=== PATIENT | female | born 1975 | race African-American/Black ===

== ENCOUNTER 2021-06-11 10:04 | Emergency (ER) | payer OTHER, MEDICAID ==
[2021-06-11 11:28] LABS: #Eosinphils 0.1 thou/uL (0.0-0.7); #Lymphocytes 2.5 thou/uL (1.20-3.40); #Monocytes 0.6 thou/uL (0.11-0.59); #Neutrophils 5.8 thou/uL (1.40-6.50); %Basophils 0.4 % (0.0-1.0); %Eosinophils 1.2 % (0.0-10.0); %Lymphocytes 27.5 % (21.0-51.0); %Monocytes 7.1 % (0.0-10.0); %Neutrophils 63.8 % (42.0-75.0); Hemoglobin 12.2 g/dL (12.0-16.0); Mean Corpuscular HGB CONC 33.4 g/dL (32.0-36.0); Mean Corpuscular Hemoglobin 29.1 pg (27.0-31.0); Mean Corpuscular Volume 87.3 fL (78.0-98.0); Mean Platelet Volume 9.4 fL (7.4-10.4); Platelet Count 279 thou/uL (130-400); RBC Distribution Width 13.9 % (11.5-14.5); Red Blood Cell (RBC) Count 4.17 mill/uL (4.20-5.40); White Blood Cell (WBC) Count 9.1 thou/uL (4.8-10.8)
[2021-06-11] MEDS ORDERED: Acetaminophen 500 MG TAB ONE (11:31)
[2021-06-11 11:49] LABS: Digoxin Less than 0.15 ng/mL (0.8-2.0)
[2021-06-11 11:50] LABS: ALT (SGPT) 17 U/L (8-55); AST (SGOT) 16 U/L (5-34); Alkaline Phosphatase 61 U/L (40-110); Anion Gap 12 mmol/L (10-20); BUN (Urea Nitrogen) 12 mg/dL (7.0-18.7); Bilirubin, Total 0.3 mg/dL (0.2-1.2); Calc. Creatinine Clearance 0 mL/min (70-130); Calcium 8.3 mg/dL (7.8-10.44); Carbon Dioxide 24 mmol/L (22-29); Chloride 106 mmol/L (98-107); Globulin 3.4 g/dL (2.4-3.5); Glucose 95 mg/dL (70-105); Lipase 62 U/L (8-78); Potassium 3.8 mmol/L (3.5-5.1); Protein, Total 7.4 g/dL (6.0-8.3); Sodium 138 mmol/L (136-145)
== END 2021-06-11 12:26 | disposition home or self-care (01) ==
LOC: ERS 10:04
DX: R07.2 Precordial pain (principal)
CPT/HCPCS: 36415; 71045; 80053; 80162; 83690; 84484; 85025; 93005

== ENCOUNTER 2021-08-17 22:30 | Emergency (ER) | payer OTHER, MEDICAID ==
[2021-08-18 02:20] LABS: #Basophils 0.1 thou/uL (0.0-0.2); #Eosinphils 0.1 thou/uL (0.0-0.7); #Lymphocytes 3.8 thou/uL (1.20-3.40); #Monocytes 0.9 thou/uL (0.11-0.59); #Neutrophils 7.3 thou/uL (1.40-6.50); %Basophils 1.2 % (0.0-1.0); %Lymphocytes 31.3 % (21.0-51.0); %Neutrophils 59.6 % (42.0-75.0); Hemoglobin 12.5 g/dL (12.0-16.0); Mean Corpuscular Hemoglobin 29.8 pg (27.0-31.0); Mean Corpuscular Volume 87.5 fL (78.0-98.0); Mean Platelet Volume 9.3 fL (7.4-10.4); Platelet Count 263 thou/uL (130-400); RBC Distribution Width 13.9 % (11.5-14.5); Red Blood Cell (RBC) Count 4.21 mill/uL (4.20-5.40); White Blood Cell (WBC) Count 12.2 thou/uL (4.8-10.8)
[2021-08-18 02:40] LABS: ALT (SGPT) 22 U/L (8-55); AST (SGOT) 17 U/L (5-34); Albumin 4.1 g/dL (3.5-5.0); Alkaline Phosphatase 57 U/L (40-110); Anion Gap 13 mmol/L (10-20); BUN (Urea Nitrogen) 16 mg/dL (7.0-18.7); Bilirubin, Total 0.2 mg/dL (0.2-1.2); Calc. Creatinine Clearance 0 mL/min (70-130); Calcium 8.5 mg/dL (7.8-10.44); Carbon Dioxide 23 mmol/L (22-29); Chloride 107 mmol/L (98-107); Globulin 3.1 g/dL (2.4-3.5); Glucose 105 mg/dL (70-105); Lipase 68 U/L (8-78); Potassium 3.9 mmol/L (3.5-5.1); Protein, Total 7.2 g/dL (6.0-8.3); Sodium 139 mmol/L (136-145)
[2021-08-18] MEDS ORDERED: Ketorolac Tromethamine 30 MG/ML VIAL ONE (03:14)
== END 2021-08-18 03:24 | disposition home or self-care (01) ==
LOC: ERS 22:30
DX: G43.909 Migraine, unspecified, not intractable, without status migrainosus (principal); M25.812 Other specified joint disorders, left shoulder
CPT/HCPCS: 36415; 71045; 80053; 83690; 84484; 85025; 93005; J1885

== ENCOUNTER 2022-02-23 22:24 | Emergency (ER) | payer OTHER ==
[2022-02-23] MEDS ORDERED: diphenhydrAMINE 50 MG/ML VIAL ONE (23:38)
[2022-02-23] MEDS ORDERED: Metoclopramide HCl 10 MG/2 ML VIAL ONE (23:38)
[2022-02-24] MEDS ORDERED: Ketorolac Tromethamine 30 MG/ML VIAL ONE (00:47)
== END 2022-02-24 00:54 | disposition home or self-care (01) ==
LOC: ERS 22:24
DX: R51.9 Headache, unspecified (principal); E03.9 Hypothyroidism, unspecified
CPT/HCPCS: 96374; 96375; J1200; J1885; J2765

== ENCOUNTER 2022-03-22 22:53 | Emergency (ER) | payer OTHER ==
[2022-03-22] MEDS ORDERED: Lidocaine 2% Viscous Solution 10 ML, Aluminum & Magnesium Hydroxide 30 ML SSW SCH (23:45)
[2022-03-22] MEDS ORDERED: Ondansetron ODT 4 MG TAB ONE (23:46)
[2022-03-22 23:57] LABS: #Basophils 0.1 thou/uL (0.0-0.2); #Eosinphils 0.1 thou/uL (0.0-0.7); #Lymphocytes 3.5 thou/uL (1.20-3.40); #Monocytes 0.8 thou/uL (0.11-0.59); #Neutrophils 7.7 thou/uL (1.40-6.50); %Eosinophils 0.6 % (0.0-10.0); %Lymphocytes 28.9 % (21.0-51.0); %Monocytes 6.5 % (0.0-10.0); %Neutrophils 62.9 % (42.0-75.0); Hemoglobin 13.1 g/dL (12.0-16.0); Mean Corpuscular HGB CONC 33.8 g/dL (32.0-36.0); Mean Corpuscular Hemoglobin 29.4 pg (27.0-31.0); Mean Corpuscular Volume 87.1 fL (78.0-98.0); Mean Platelet Volume 9.6 fL (7.4-10.4); Platelet Count 258 thou/uL (130-400); RBC Distribution Width 14.5 % (11.5-14.5); Red Blood Cell (RBC) Count 4.46 mill/uL (4.20-5.40); White Blood Cell (WBC) Count 12.2 thou/uL (4.8-10.8)
[2022-03-23 00:04] LABS: BHCG - Serum Negative (NEGATIVE); Pregs Control Background? CLEAR/WHITE (CLR/WHITE); Pregs Control Bar Appear? YES (CONTROL BAR)
[2022-03-23 00:19] LABS: Bacteria/HPF None Seen HPF (None Seen); Bilirubin Negative (Negative); Blood, Urine Negative (Negative); Clarity Turbid (Clear); Glucose, Urine (Dipstick) Normal (Negative); Ketone, Urine Negative (Negative); Leukocyte 500 Leu/uL (Negative); Nitrite Negative (Negative); Protein, Urine (Dipstick) Negative (Neg-Trace); RBC/HPF 0-3 HPF (0-3); Specific Gravity, Urine 1.021 (1.002-1.036); Urobilinogen Normal mg/dL (Less than 2); pH, Urine 6.5 (5.0-9.0)
[2022-03-23 00:31] LABS: ALT (SGPT) 17 U/L (8-55); AST (SGOT) 24 U/L (5-34); Albumin 4.2 g/dL (3.5-5.0); Alkaline Phosphatase 66 U/L (40-110); Anion Gap 14 mmol/L (10-20); BUN (Urea Nitrogen) 13 mg/dL (7.0-18.7); Bilirubin, Total Less than 0.2 mg/dL (0.2-1.2); Calc. Creatinine Clearance 0 mL/min (70-130); Calcium 8.7 mg/dL (7.8-10.44); Carbon Dioxide 23 mmol/L (22-29); Chloride 106 mmol/L (98-107); Globulin 4.2 g/dL (2.4-3.5); Glucose 107 mg/dL (70-105); Lipase 67 U/L (8-78); Potassium 5.3 mmol/L (3.5-5.1); Protein, Total 8.4 g/dL (6.0-8.3); Sodium 138 mmol/L (136-145)
[2022-03-23] MEDS ORDERED: Sucralfate 1 GM/10 ML UDCUP ONE (00:41)
== END 2022-03-23 00:56 | disposition home or self-care (01) ==
LOC: ERS 22:53
DX: R10.13 Epigastric pain (principal); R11.2 Nausea with vomiting, unspecified; E03.9 Hypothyroidism, unspecified
CPT/HCPCS: 71045; 80053; 81003; 81015; 83690; 84484; 84703; 85025; 87086; 93005; Q0162

== ENCOUNTER 2022-03-31 02:09 | Emergency (ER) | payer OTHER ==
[2022-03-31] MEDS ORDERED: Ketorolac Tromethamine 30 MG/ML VIAL ONE (03:45)
[2022-03-31] MEDS ORDERED: diphenhydrAMINE 50 MG/ML VIAL ONE (03:45)
[2022-03-31] MEDS ORDERED: Metoclopramide HCl 10 MG/2 ML VIAL ONE (03:45)
== END 2022-03-31 07:38 | disposition home or self-care (01) ==
LOC: ERS 02:09
DX: G43.909 Migraine, unspecified, not intractable, without status migrainosus (principal); E03.9 Hypothyroidism, unspecified; Z79.899 Other long term (current) drug therapy
CPT/HCPCS: 96374; 96375; J1200; J1885; J2765

== ENCOUNTER 2022-10-13 12:55 | Emergency (ER) | payer OTHER | END 2022-10-13 15:00 | disposition home or self-care (01) | LOC: ERS 12:55 | DX: J06.9 Acute upper respiratory infection, unspecified (principal); E03.9 Hypothyroidism, unspecified; G43.909 Migraine, unspecified, not intractable, without status migrainosus; Z20.822 Contact with and (suspected) exposure to COVID-19 | CPT/HCPCS: 87804; 99283; U0003; U0005 ==

== ENCOUNTER 2022-11-12 12:19 | Emergency (ER) | payer OTHER, SELFPAY ==
[2022-11-12 13:02] LABS: #Basophils 0.1 thou/uL (0.0-0.2); #Eosinphils 0.1 thou/uL (0.0-0.7); #Lymphocytes 3.6 thou/uL (1.20-3.40); #Monocytes 0.9 thou/uL (0.11-0.59); #Neutrophils 6.3 thou/uL (1.40-6.50); %Basophils 0.9 % (0.0-1.0); %Eosinophils 0.8 % (0.0-10.0); %Lymphocytes 32.6 % (21.0-51.0); %Monocytes 8.2 % (0.0-10.0); %Neutrophils 57.4 % (42.0-75.0); Hemoglobin 12.9 g/dL (12.0-16.0); Mean Corpuscular HGB CONC 33.1 g/dL (32.0-36.0); Mean Corpuscular Hemoglobin 28.5 pg (27.0-31.0); Mean Corpuscular Volume 86.1 fl (78.0-98.0); Platelet Count 237 10x3/uL (130-400); RBC Distribution Width 14.5 % (11.5-14.5); Red Blood Cell (RBC) Count 4.51 mill/uL (4.20-5.40)
[2022-11-12 13:21] LABS: ALT (SGPT) 17 U/L (8-55); AST (SGOT) 19 U/L (5-34); Albumin 4.1 g/dL (3.5-5.0); Alkaline Phosphatase 64 U/L (40-110); Anion Gap 17 mmol/L (10-20); BUN (Urea Nitrogen) 16 mg/dL (7.0-18.7); Bilirubin, Total 0.2 mg/dL (0.2-1.2); Calc. Creatinine Clearance 0 mL/min (70-130); Calcium 8.4 mg/dL (7.8-10.44); Carbon Dioxide 20 mmol/L (22-29); Chloride 107 mmol/L (98-107); Estimated GFR 94; Globulin 3.8 g/dL (2.4-3.5); Glucose 95 mg/dL (70-105); Protein, Total 7.9 g/dL (6.0-8.3); Sodium 140 mmol/L (136-145)
[2022-11-12] MEDS ORDERED: Ketorolac Tromethamine 30 MG/ML VIAL ONE (13:57)
== END 2022-11-12 16:51 | disposition home or self-care (01) ==
LOC: ERS 12:19
DX: M25.512 Pain in left shoulder (principal); M62.838 Other muscle spasm; D72.829 Elevated white blood cell count, unspecified; E03.9 Hypothyroidism, unspecified; G43.909 Migraine, unspecified, not intractable, without status migrainosus
CPT/HCPCS: 36415; 71045; 80053; 84484; 85025; 85379; 93005; 96372; J1885

== ENCOUNTER 2023-05-09 23:42 | Emergency (ER) | payer MEDICAID, OTHER, SELFPAY ==
[2023-05-10 00:05] LABS: #Basophils 0.1 thou/uL (0.0-0.2); #Eosinphils 0.1 thou/uL (0.0-0.7); #Monocytes 0.9 thou/uL (0.11-0.59); #Neutrophils 7.1 thou/uL (1.40-6.50); %Basophils 0.4 % (0.0-1.0); %Lymphocytes 33.8 % (21.0-51.0); %Monocytes 7.2 % (0.0-10.0); %Neutrophils 57.4 % (42.0-75.0); Hemoglobin 12.2 g/dL (12.0-16.0); Mean Corpuscular Hemoglobin 27.6 pg (27.0-31.0); Mean Corpuscular Volume 83.7 fl (78.0-98.0); Mean Platelet Volume 11.2 fL (7.4-10.4); Platelet Count 295 10x3/uL (130-400); RBC Distribution Width 16.7 % (11.5-14.5); Red Blood Cell (RBC) Count 4.42 mill/uL (4.20-5.40); White Blood Cell (WBC) Count 12.3 10x3/uL (4.8-10.8)
[2023-05-10] MEDS ORDERED: Pantoprazole 40 MG VIAL ONE (00:09)
[2023-05-10] MEDS ORDERED: Sucralfate 1 GM/10 ML UDCUP ONE (00:09)
[2023-05-10 00:27] LABS: BUN (Urea Nitrogen) 16 mg/dL (7.0-18.7); Calc. Creatinine Clearance 0 mL/min (70-130); Chloride 108 mmol/L (98-107); Potassium 3.6 mmol/L (3.5-5.1); Sodium 141 mmol/L (136-145)
[2023-05-10 00:28] LABS: ALT (SGPT) 27 U/L (8-55); AST (SGOT) 23 U/L (5-34); Albumin 4.2 g/dL (3.5-5.0); Alkaline Phosphatase 66 U/L (40-110); Bilirubin, Total 0.2 mg/dL (0.2-1.2); Calcium 8.9 mg/dL (7.8-10.44); Estimated GFR 82; Globulin 3.2 g/dL (2.4-3.5); Glucose 115 mg/dL (70-105); Protein, Total 7.4 g/dL (6.0-8.3)
[2023-05-10 00:54] LABS: Anion Gap 12 mmol/L (10-20); Carbon Dioxide 24 mmol/L (22-29)
[2023-05-10] MEDS ORDERED: Famotidine/PF 20 mg/2ml Vial ONE (01:00)
== END 2023-05-10 02:50 | disposition home or self-care (01) ==
LOC: ERS 23:42
DX: K20.90 Esophagitis, unspecified without bleeding (principal); E03.9 Hypothyroidism, unspecified
CPT/HCPCS: 71045; 80053; 84484; 85025; 93005; C9113; S0028

== ENCOUNTER 2023-07-05 05:27 | Inpatient (IN) | payer OTHER, SELFPAY ==
[2023-07-05 05:54] LABS: Hematocrit 39.5 % (36.0-47.0); Hemoglobin 12.9 g/dL (12.0-16.0); Mean Corpuscular HGB CONC 32.7 g/dL (32.0-36.0); Mean Corpuscular Hemoglobin 27.6 pg (27.0-31.0); Mean Corpuscular Volume 84.4 fl (78.0-98.0); Mean Platelet Volume 11.5 fL (7.4-10.4); Platelet Count 318 10x3/uL (130-400); RBC Distribution Width 16.4 % (11.5-14.5); Red Blood Cell (RBC) Count 4.68 mill/uL (4.20-5.40); White Blood Cell (WBC) Count 16.7 10x3/uL (4.8-10.8)
[2023-07-05 05:56] LABS: Delete Auto Diff?? YES; Manual Diff?? YES
[2023-07-05] MEDS ORDERED: Ketorolac Tromethamine 30 MG/ML VIAL ONE (06:12)
[2023-07-05] MEDS ORDERED: Ondansetron PF 4 MG/2 ML Vial ONE (06:12)
[2023-07-05 06:17] LABS: CellaVision Operator ID LAB.CLH1; Eosinophils 1 % (0-10); Hypochromia SLIGHT = 6-15 cells HPF (0-5); Lymphocytes 45 % (21-51); Monocytes 7 % (0-10); Neutrophil 47 % (42-75); Platelet Adequacy Comment Platelets Normal; Total Cell Count 99
[2023-07-05 06:18] LABS: ALT (SGPT) 30 U/L (8-55); AST (SGOT) 23 U/L (5-34); Albumin 4.7 g/dL (3.5-5.0); Alkaline Phosphatase 69 U/L (40-110); Anion Gap 21 mmol/L (10-20); BUN (Urea Nitrogen) 15 mg/dL (7.0-18.7); Bilirubin, Total Less than 0.2 mg/dL (0.2-1.2); Calc. Creatinine Clearance 0 mL/min (70-130); Calcium 8.7 mg/dL (7.8-10.44); Carbon Dioxide 18 mmol/L (22-29); Chloride 107 mmol/L (98-107); Estimated GFR 62; Globulin 3.3 g/dL (2.4-3.5); Glucose 125 mg/dL (70-105); Lipase 108 U/L (8-78); Potassium 3.9 mmol/L (3.5-5.1); Sodium 142 mmol/L (136-145)
[2023-07-05 06:21] LABS: Troponin I Less than 0.010 ng/mL (< 0.028)
[2023-07-05] MEDS ORDERED: Cefepime 2 GM VIAL ONE (07:10)
[2023-07-05 07:12] LABS: Bilirubin Negative (Negative); Blood, Urine Negative (Negative); CAUTI Indications for Culture < 2yrs of age; Glucose, Urine (Dipstick) Normal (Negative); Ketone, Urine Negative (Negative); Leukocyte 75 Leu/uL (Negative); Nitrite Negative (Negative); Protein, Urine (Dipstick) 50 mg/dL (Neg-Trace); Urobilinogen Normal mg/dL (Less than 2)
[2023-07-05 07:13] LABS: Specific Gravity, Urine 1.047 (1.002-1.036)
[2023-07-05 07:14] LABS: Clarity Hazy (Clear)
[2023-07-05 07:28] LABS: Bacteria/HPF 1+ HPF (None Seen)
[2023-07-05 07:29] LABS: Urine Culture Reflex Yes Yes
[2023-07-05] MEDS ORDERED: Vancomycin 1 GM/200 ML (FROZEN) BAG ONE (08:00)
[2023-07-05 10:08] LABS: Lactic Acid 1.5 mmol/L (0.5-2.2)
[2023-07-05] MEDS ORDERED: Ondansetron PF 4 MG/2 ML Vial IVP PRN (10:08)
[2023-07-05] MEDS ORDERED: Senokot S 8.6-50 MG TAB PO PRN (10:08)
[2023-07-05] MEDS ORDERED: Acetaminophen 325 MG TAB PO PRN (10:08)
[2023-07-05 10:15] LABS: SARS-CoV-2 NAA Rapid Test Not Detected (NotDetected)
[2023-07-05] MEDS ORDERED: Iopamidol 370 76% 100 ML VIAL ONE (10:26)
[2023-07-05] MEDS ORDERED: ALPRAZolam 0.25 MG TAB PO PRN (10:42)
[2023-07-05] MEDS ORDERED: Pantoprazole 40 MG VIAL IVP SCH ×2 (10:42→11:15)
[2023-07-05 10:55] VITALS: BMI 34.9
[2023-07-05] MEDS ORDERED: Lactated Ringer's 1,000 ML IV SCH (11:00)
[2023-07-05] MEDS ORDERED: cefTRIAXone (ROCEPHIN) 1 GM VIAL ONE (11:19)
[2023-07-05] MEDS ORDERED: Pantoprazole 40 MG VIAL ONE (11:19)
[2023-07-05 11:21] LABS: Troponin I Less than 0.010 ng/mL (< 0.028)
[2023-07-05] MEDS: cefTRIAXone\\ROCEPHIN 1 GM in Sodium Chloride 0.9% 100 ML IVPB SCH (12:25)
[2023-07-05 16:51] LABS: Amphetamine Not Detected (NotDetected); Barbiturates Screen Not Detected (NotDetected); Benzodiazepine Screen Not Detected (NotDetected); Cocaine Metabolite Screen Not Detected (NotDetected); Methadone Not Detected (NotDetected); Methamphetamine Not Detected (NotDetected); Opiate Screen Not Detected (NotDetected); Oxycodone Screen Not Detected (NotDetected); Phencyclidine (PCP) Not Detected (NotDetected); THC/Cannabinoid Screen Not Detected (NotDetected); Tricyclic Screen Not Detected (NotDetected)
[2023-07-05] MEDS: Pantoprazole 40 MG VIAL IVP SCH (20:42)
[2023-07-05] MEDS ORDERED: Famotidine 20 MG TAB PO SCH (21:00)
[2023-07-06 08:15] LABS: #Basophils 0.1 thou/uL (0.0-0.2); #Eosinphils 0.2 thou/uL (0.0-0.7); #Monocytes 0.7 thou/uL (0.11-0.59); #Neutrophils 4.6 thou/uL (1.40-6.50); %Basophils 0.7 % (0.0-1.0); %Eosinophils 2.7 % (0.0-10.0); %Lymphocytes 36.7 % (21.0-51.0); %Monocytes 7.6 % (0.0-10.0); %Neutrophils 52.2 % (42.0-75.0); Hematocrit 34.4 % (36.0-47.0); Hemoglobin 11.2 g/dL (12.0-16.0); Mean Corpuscular HGB CONC 32.6 g/dL (32.0-36.0); Mean Corpuscular Hemoglobin 27.7 pg (27.0-31.0); Mean Corpuscular Volume 85.1 fl (78.0-98.0); Mean Platelet Volume 11.9 fL (7.4-10.4); Platelet Count 251 10x3/uL (130-400); RBC Distribution Width 16.6 % (11.5-14.5); Red Blood Cell (RBC) Count 4.04 mill/uL (4.20-5.40); White Blood Cell (WBC) Count 8.7 10x3/uL (4.8-10.8)
[2023-07-06 08:51] LABS: ALT (SGPT) 20 U/L (8-55); AST (SGOT) 16 U/L (5-34); Albumin 3.5 g/dL (3.5-5.0); Alkaline Phosphatase 52 U/L (40-110); Anion Gap 13 mmol/L (10-20); BUN (Urea Nitrogen) 13 mg/dL (7.0-18.7); Bilirubin, Total Less than 0.2 mg/dL (0.2-1.2); Calc. Creatinine Clearance 113 mL/min (70-130); Calcium 7.3 mg/dL (7.8-10.44); Carbon Dioxide 22 mmol/L (22-29); Chloride 110 mmol/L (98-107); Estimated GFR 88; Globulin 2.7 g/dL (2.4-3.5); Glucose 109 mg/dL (70-105); Potassium 4.1 mmol/L (3.5-5.1); Protein, Total 6.2 g/dL (6.0-8.3); Sodium 141 mmol/L (136-145)
[2023-07-06] MEDS: Pantoprazole 40 MG VIAL IVP SCH ×2 (09:14→21:00)
[2023-07-06] MEDS: cefTRIAXone\\ROCEPHIN 1 GM in Sodium Chloride 0.9% 100 ML IVPB SCH (12:02)
[2023-07-06] MEDS ORDERED: ALPRAZolam 0.25 MG TAB PO PRN (19:51)
[2023-07-07] MEDS ORDERED: Levothyroxine Sodium 50 MCG TAB PO SCH ×3 (06:00→11:30)
[2023-07-07 08:31] VITALS: TEMP 98
[2023-07-07] MEDS ORDERED: Levothyroxine Sodium 25 MCG TAB PO SCH (09:00)
[2023-07-07] MEDS: Pantoprazole 40 MG VIAL IVP SCH (09:03)
[2023-07-07] MEDS: cefTRIAXone\\ROCEPHIN 1 GM in Sodium Chloride 0.9% 100 ML IVPB SCH (12:26)
[2023-07-07 18:29] VITALS: BP 134/86
[2023-07-08] MEDS ORDERED: Levothyroxine Sodium 50 MCG TAB PO SCH (06:00)
== END 2023-07-07 18:42 | disposition home or self-care (01) | DRG 872 ==
LOC: ERS 05:27 → ERHOLD 10:08 → T4-A 13:39
PROVIDERS: ADMIT Internal Medicine; ATTEND Hospitalist
DX: R57.1 Hypovolemic shock (principal); E87.20 Acidosis, unspecified; A08.4 Viral intestinal infection, unspecified; E03.9 Hypothyroidism, unspecified; R82.81 Pyuria; K21.9 Gastro-esophageal reflux disease without esophagitis; Z88.5 Allergy status to narcotic agent; Z79.890 Hormone replacement therapy; Z98.890 Other specified postprocedural states; Z20.822 Contact with and (suspected) exposure to COVID-19; K44.9 Diaphragmatic hernia without obstruction or gangrene
CPT/HCPCS: 36415; 71045; 74177; 80053; 80306; 81001; 83605; 83690; 84145; 84443; 84484; 85025; 87040; 87086; 93005; 94760; 96361; 96365; 96367; 96375; C9113; J0692; J0696; J1650; J1885; J2405; J3370-JW; J3490; J7120; Q9967

== ENCOUNTER 2023-07-30 18:49 | Emergency (ER) | payer SELFPAY ==
[2023-07-30] MEDS ORDERED: Dexamethasone 4 MG TAB ONE (19:09)
[2023-07-30] MEDS ORDERED: Ketorolac Tromethamine 30 MG/ML VIAL ONE (19:09)
[2023-07-30] MEDS ORDERED: Morphine 4 MG/ML VIAL ONE (19:09)
[2023-07-30 19:41] LABS: Bacteria/HPF 3+ HPF (None Seen); Bilirubin Negative (Negative); Blood, Urine Negative (Negative); CAUTI Indications for Culture Dysuria,urgency,freq; Clarity Turbid (Clear); Glucose, Urine (Dipstick) Normal (Negative); Ketone, Urine Negative (Negative); Leukocyte 250 Leu/uL (Negative); Mucous/LPF Rare LPF (<2+); Nitrite Negative (Negative); Protein, Urine (Dipstick) 20 mg/dL (Neg-Trace); RBC/HPF 0-3 HPF (0-3); Specific Gravity, Urine 1.028 (1.002-1.036); Urobilinogen Normal mg/dL (Less than 2); pH, Urine 5.5 (5.0-9.0)
[2023-07-30 19:42] LABS: Urine Culture Reflex No No
[2023-07-30] MEDS ORDERED: HYDROcodone/Acetaminophen 5/325 mg Tablet ONE (19:49)
== END 2023-07-30 20:03 | disposition home or self-care (01) ==
LOC: ERS 18:49
DX: M54.42 Lumbago with sciatica, left side (principal); E03.9 Hypothyroidism, unspecified
CPT/HCPCS: 81001; 96372; 99283; J1885; J2270; J8540

== ENCOUNTER 2023-08-17 21:36 | Emergency (ER) | payer SELFPAY ==
[2023-08-17 22:52] LABS: #Basophils 0.1 thou/uL (0.0-0.2); #Monocytes 0.7 thou/uL (0.11-0.59); #Neutrophils 8.5 thou/uL (1.40-6.50); %Basophils 0.4 % (0.0-1.0); %Eosinophils 0.3 % (0.0-10.0); %Lymphocytes 25.7 % (21.0-51.0); %Monocytes 5.3 % (0.0-10.0); %Neutrophils 67.7 % (42.0-75.0); Hematocrit 41.5 % (36.0-47.0); Hemoglobin 13.5 g/dL (12.0-16.0); Mean Corpuscular HGB CONC 32.5 g/dL (32.0-36.0); Mean Corpuscular Hemoglobin 27.8 pg (27.0-31.0); Mean Corpuscular Volume 85.6 fl (78.0-98.0); Mean Platelet Volume 11.3 fL (7.4-10.4); Platelet Count 309 10x3/uL (130-400); RBC Distribution Width 16.7 % (11.5-14.5); Red Blood Cell (RBC) Count 4.85 mill/uL (4.20-5.40); White Blood Cell (WBC) Count 12.6 10x3/uL (4.8-10.8)
[2023-08-17 22:58] LABS: BHCG - Serum Negative (NEGATIVE); Pregs Control Background? CLEAR/WHITE (CLR/WHITE); Pregs Control Bar Appear? YES (CONTROL BAR)
[2023-08-17 23:06] LABS: ALT (SGPT) 25 U/L (8-55); AST (SGOT) 22 U/L (5-34); Albumin 5.2 g/dL (3.5-5.0); Alkaline Phosphatase 68 U/L (40-110); Anion Gap 15 mmol/L (10-20); BUN (Urea Nitrogen) 11 mg/dL (7.0-18.7); Bilirubin, Total 0.2 mg/dL (0.2-1.2); Calc. Creatinine Clearance 0 mL/min (70-130); Calcium 8.6 mg/dL (7.8-10.44); Carbon Dioxide 23 mmol/L (22-29); Chloride 106 mmol/L (98-107); Estimated GFR 88; Globulin 3.4 g/dL (2.4-3.5); Glucose 94 mg/dL (70-105); Lipase 51 U/L (8-78); Potassium 3.8 mmol/L (3.5-5.1); Protein, Total 8.6 g/dL (6.0-8.3); Sodium 140 mmol/L (136-145)
[2023-08-17 23:09] LABS: Troponin I Less than 0.010 ng/mL (< 0.028)
[2023-08-17] MEDS ORDERED: Nitroglycerin 2% Ointment 1 INCH/1 GM Packet ONE (23:17)
== END 2023-08-17 23:43 | disposition home or self-care (01) ==
LOC: ERS 21:36
DX: R07.9 Chest pain, unspecified (principal); R00.2 Palpitations; E03.9 Hypothyroidism, unspecified
CPT/HCPCS: 71045; 80053; 83690; 84484; 84703; 85025; 93005

== ENCOUNTER 2023-09-03 19:51 | Emergency (ER) | payer SELFPAY ==
[2023-09-03] MEDS ORDERED: Fluorescein Opthalmic Strip ONE (21:18)
[2023-09-03] MEDS ORDERED: Proparacaine 0.5% Opth 15 ML BOT ONE (21:18)
== END 2023-09-03 21:49 | disposition home or self-care (01) ==
LOC: ERS 19:51
DX: H10.9 Unspecified conjunctivitis (principal); E03.9 Hypothyroidism, unspecified
CPT/HCPCS: 99282

== ENCOUNTER 2023-10-08 22:21 | Emergency (ER) | payer SELFPAY ==
[2023-10-08] MEDS ORDERED: Dexamethasone 10 MG/ML VIAL ONE (22:59)
== END 2023-10-08 23:08 | disposition home or self-care (01) ==
LOC: ERS 22:21
DX: J32.1 Chronic frontal sinusitis (principal); H10.9 Unspecified conjunctivitis; E03.9 Hypothyroidism, unspecified; Z79.899 Other long term (current) drug therapy
CPT/HCPCS: 99283; J1100

== ENCOUNTER 2024-04-02 08:51 | Emergency (ER) | payer SELFPAY | END 2024-04-02 09:46 | disposition home or self-care (01) | LOC: ERS 08:51 | DX: M79.672 Pain in left foot (principal); E03.9 Hypothyroidism, unspecified; Z75.3 Unavailability and inaccessibility of health-care facilities ==

== ENCOUNTER 2024-05-07 22:32 | Emergency (ER) | payer OTHER, SELFPAY ==
[2024-05-07 23:28] LABS: Influenza A by NAA Not Detected (NotDetected); Influenza B by NAA Not Detected (NotDetected); SARS-CoV-2 NAA Rapid Test Not Detected (NotDetected)
[2024-05-08] MEDS ORDERED: Ketorolac Tromethamine 30 MG (1 mL) VIAL ONE (00:11)
[2024-05-08] MEDS ORDERED: predniSONE 20 MG TAB ONE (00:11)
== END 2024-05-08 00:35 | disposition home or self-care (01) ==
LOC: ERS 22:32
DX: B34.9 Viral infection, unspecified (principal)
CPT/HCPCS: 71045; 96372; J1885; J7512

== ENCOUNTER 2024-07-24 20:43 | Emergency (ER) | payer OTHER ==
[2024-07-24] MEDS ORDERED: Ketorolac Tromethamine 30 MG (1 mL) VIAL ONE (21:51)
[2024-07-24 22:00] LABS: #Basophils 0.05 10x3/uL (0.0-0.2); %Basophils 0.5 % (0.0-1.0); %Eosinophils 1.5 % (0.0-10.0); %Lymphocytes 38.1 % (21.0-51.0); %Monocytes 6.4 % (0.0-10.0); %Neutrophils 53.3 % (42.0-75.0); Hematocrit 38.1 % (36.0-47.0); Hemoglobin 12.8 g/dL (12.0-16.0); Mean Corpuscular HGB CONC 33.6 g/dL (32.0-36.0); Mean Corpuscular Hemoglobin 27.4 pg (27.0-31.0); Mean Corpuscular Volume 81.4 fL (78.0-98.0); Mean Platelet Volume 11.9 fL (7.4-10.4); Platelet Count 213 10x3/uL (130-400); RBC Distribution Width 16.7 % (11.5-14.5); Red Blood Cell (RBC) Count 4.68 mill/uL (4.20-5.40)
[2024-07-24 22:17] LABS: ALT (SGPT) 20 U/L (8-55); AST (SGOT) 18 U/L (5-34); Albumin 3.8 g/dL (3.5-5.0); Alkaline Phosphatase 65 U/L (40-110); Anion Gap 15 mmol/L (10-20); BUN (Urea Nitrogen) 15 mg/dL (7.0-18.7); Bilirubin, Total 0.2 mg/dL (0.2-1.2); Calc. Creatinine Clearance 0 mL/min (70-130); Calcium 7.9 mg/dL (7.8-10.44); Carbon Dioxide 22 mmol/L (22-29); Chloride 109 mmol/L (98-107); Estimated GFR 83; Globulin 3.4 g/dL (2.4-3.5); Glucose 90 mg/dL (70-105); Protein, Total 7.2 g/dL (6.0-8.3); Sodium 142 mmol/L (136-145)
[2024-07-24 23:27] LABS: Troponin I Less than 0.010 ng/mL (< 0.028)
== END 2024-07-24 23:20 | disposition home or self-care (01) ==
LOC: ERS 20:43
DX: R07.89 Other chest pain (principal)
CPT/HCPCS: 36415; 71045; 80053; 84484; 85025; 93005; 96372; J1885

== ENCOUNTER 2024-08-05 14:26 | Emergency (ER) | payer OTHER ==
[2024-08-05] MEDS ORDERED: Ketorolac Tromethamine 30 MG (1 mL) VIAL ONE (14:59)
[2024-08-05] MEDS ORDERED: diphenhydrAMINE 50 MG/ML VIAL ONE (14:59)
[2024-08-05] MEDS ORDERED: Prochlorperazine 10 MG/2 ML VIAL ONE (14:59)
[2024-08-05] MEDS ORDERED: Acetaminophen 500 MG TAB ONE (14:59)
[2024-08-05] MEDS ORDERED: Dexamethasone 10 MG/ML VIAL ONE (14:59)
== END 2024-08-05 16:50 | disposition home or self-care (01) ==
LOC: ERS 14:26
DX: G43.909 Migraine, unspecified, not intractable, without status migrainosus (principal); I10 Essential (primary) hypertension
CPT/HCPCS: 96374; 96375; J0780; J1100; J1200; J1885